=== PATIENT | female | born 1980 | race Caucasian/White ===

== ENCOUNTER 2016-10-11 12:41 | Inpatient (IN) | payer BC, OTHER ==
[~2016-10-11] VITALS: Ht 167.6 cm; Wt 61.0 kg
[2016-10-11 13:08] LABS: HEMATOCRIT 31.2 % (36.0-46.0); MCHC 33.3 G/DL (30.0-36.0); MCV 93.1 FL (83-99); MEAN PLAT.VOLUME 10.2 uM^3 (9.5-12.4); PLATELET COUNT 116 K/uL (156-360); RBC DIS.WIDTH-CV 14.4 % (11.8-14.6); RBC DIS.WIDTH-SD 47.2 % (39-53); RED BLOOD COUNT 3.35 M/uL (3.80-5.20); WHITE BLOOD COUNT 4.9 K/uL (4.1-10.2)
[2016-10-11 13:22] LABS: CHLORIDE 102 mEq/L (99-109); POTASSIUM 3.8 mEq/L (3.7-5.4); SODIUM 137 mEq/L (136-147)
[2016-10-11 13:24] LABS: GLUCOSE 117 mg/dL (70-99)
[2016-10-11 13:25] LABS: ANION GAP 9 MEQ/L (2-14)
[2016-10-11 13:28] LABS: GFR ESTIMATE (CALCULATED) > 59 mL/min/; UREA NITROGEN (BUN) 10 mg/dL (9-23)
[2016-10-11 13:30] LABS: TROP-I INTERPRETATION NEGATIVE; TROPONIN-I < 0.01 ng/mL (0.0-0.30)
[2016-10-11 13:33] LABS: QUANTITATIVE HCG < 4.0 MIU/ML
[2016-10-11 13:51] LABS: ADD MIUA? NO; BILIRUBIN NEGATIVE; BLOOD NEGATIVE; GLUCOSE (STRIP) NEGATIVE; KETONES NEGATIVE; LEUKOCYTES NEGATIVE; NITRITE NEGATIVE; PH, URINE 7.5 (5-8); PROTEIN (STRIP) NEGATIVE; SPECIFIC GRAVITY 1.003 (1.000-1.030); UROBILINOGEN 0.2 MG/DL (0.2-1.0)
[2016-10-11 13:53] LABS: COLOR LT YELLOW ((YELLOW))
[2016-10-11] MEDS ORDERED: NEURONTIN100 MG PO (17:25)
[2016-10-11] MEDS ORDERED: SPRINTEC1 EACH PO (17:26)
[2016-10-11 19:14] LABS: TROP-I INTERPRETATION NEGATIVE; TROPONIN-I < 0.01 ng/mL (0.0-0.30)
[2016-10-11 23:30] VITALS: BP 129/71
[2016-10-12] VITALS: BP 129/71
[2016-10-12 00:55] LABS: TROP-I INTERPRETATION NEGATIVE; TROPONIN-I < 0.01 ng/mL (0.0-0.30)
[2016-10-12 01:02] LABS: METH RESISTANT S AUREUS PCR NEGATIVE (NEGATIVE)
[2016-10-12 01:07] LABS: PROBE CHECK PASS; SPECIMEN PROCESSING CONTROL PASS
[2016-10-12 04:00] VITALS: BP 110/63
[2016-10-12 08:00] VITALS: BP 111/74
[2016-10-12 10:22] LABS: LYME DISEASE SEROLOGY SCREEN NEGATIVE (NEGATIVE)
[2016-10-12 10:48] LABS: AMPHETAMINES QUANT VALUE 0 NG/ML; BARBITUATES QUANT VALUE 0 NG/ML; BENZODIAZEPINES QUANT VALUE 0 NG/ML; BENZODIAZEPINES, URINE SCREEN Negative (200 ng/mL); MARIJUANA QUANT VALUE 0 NG/ML; OPIATES QUANTITATIVE VALUE 0 NG/ML; PHENCYCLIDINE QUANT VALUE 0 NG/ML
[2016-10-12 12:00] VITALS: BP 110/59
[2016-10-12 16:00] VITALS: BP 124/85
== END 2016-10-12 17:51 | disposition home or self-care (01) | DRG 312 ==
LOC: EME 12:41 → 4WEST 17:39 → EDOF 17:39 → 4WEST 23:26
PROVIDERS: Emergency Medicine; Hospitalist; Internal Medicine; Nurse Practitioner Family
DX: R55 Syncope and collapse (principal); F10.239 Alcohol dependence with withdrawal, unspecified; D69.6 Thrombocytopenia, unspecified; G40.509 Epileptic seizures related to external causes, not intractable, without status epilepticus; I44.1 Atrioventricular block, second degree; E07.9 Disorder of thyroid, unspecified; D64.9 Anemia, unspecified
CPT/HCPCS: 71010; 71020; 71275; 80048; 80306 90; 81003; 83735; 84443; 84484; 84702; 85027; 85379; 86618; 87641; 93005; 93306; 99281; 99285; J2060; J7030

== ENCOUNTER 2017-05-17 16:27 | Inpatient (IN) | payer BC ==
[~2017-05-17] VITALS: Ht 167.6 cm; Wt 65.3 kg
[2017-05-17 00:10] VITALS: BP 65/38
[~2017-05-17 16:27] MED LIST: NEURONTIN100 MG PO; SPRINTEC1 EACH PO
[2017-05-17 17:15] LABS: HEMATOCRIT 35.3 % (36.0-46.0); MCH 32.6 PG (29.0-34.0); MCHC 33.7 G/DL (30.0-36.0); MCV 96.7 FL (83-99); MEAN PLAT.VOLUME 9.5 uM^3 (9.5-12.4); PLATELET COUNT 229 K/uL (156-360); RBC DIS.WIDTH-CV 12.1 % (11.8-14.6); RBC DIS.WIDTH-SD 43.1 % (39-53); RED BLOOD COUNT 3.65 M/uL (3.80-5.20); WHITE BLOOD COUNT 8.2 K/uL (4.1-10.2)
[2017-05-17 17:23] LABS: CHLORIDE 105 mEq/L (99-109); POTASSIUM 3.9 mEq/L (3.7-5.4); SODIUM 138 mEq/L (136-147)
[2017-05-17 17:24] LABS: GLUCOSE 102 mg/dL (70-99)
[2017-05-17 17:26] LABS: ANION GAP 11 MEQ/L (2-14)
[2017-05-17 17:28] LABS: GFR ESTIMATE (CALCULATED) > 59 mL/min/
[2017-05-17 17:29] LABS: UREA NITROGEN (BUN) 16 mg/dL (9-23)
[2017-05-17 17:39] LABS: QUANTITATIVE HCG < 4.0 MIU/ML
[2017-05-17 18:12] LABS: SERUM ETHYL ALCOHOL < 10 mg/dL
[2017-05-17 18:40] LABS: TOTAL BILIRUBIN 0.5 mg/dL (0.0-1.0)
[2017-05-17 18:41] LABS: ALKALINE PHOSPHATASE 31 IU/L (3-129)
[2017-05-17 18:44] LABS: DIRECT BILIRUBIN 0.2 mg/dL (0.0-0.3)
[2017-05-17 18:45] LABS: LIPASE 22 U/L (1.0-51.0)
[2017-05-17 19:57] LABS: TROP-I INTERPRETATION NEGATIVE; TROPONIN-I < 0.01 ng/mL (0.0-0.30)
[2017-05-17] MEDS ORDERED: MELOXICAM7.5 MG PO (20:16)
[2017-05-17] MEDS ORDERED: PIMTREA 28 DAY1 EACH PO (20:17)
[2017-05-17] MEDS ORDERED: GLUCOSAMINE CH1 EAC7 PO (20:17)
[2017-05-17] MEDS ORDERED: COLLAGEN PLUS1 EACH PO (20:17)
[2017-05-17] MEDS ORDERED: FISH OIL 1,0001 EAC7 PO (20:18)
[2017-05-17] MEDS ORDERED: SUPER B-50 COM1 EACH PO (20:18)
[2017-05-17] MEDS ORDERED: MAGNESIUM400 M1 PO (20:18)
[2017-05-17] MEDS ORDERED: HAIR, SKIN & N1 EAC1 PO (20:18)
[2017-05-17] MEDS ORDERED: PROBIOTIC1 EAC1 PO (20:19)
[2017-05-17] MEDS ORDERED: CALTRATE 600 +1 EAC1 PO (20:19)
[2017-05-17 21:16] LABS: ADD MIUA? YES; BILIRUBIN NEGATIVE; BLOOD MODERATE; COLOR YELLOW ((YELLOW)); GLUCOSE (STRIP) NEGATIVE; KETONES NEGATIVE; LEUKOCYTES TRACE; NITRITE NEGATIVE; PROTEIN (STRIP) NEGATIVE; UROBILINOGEN 0.2 MG/DL (0.2-1.0)
[2017-05-17 21:24] LABS: AMPHETAMINE NEGATIVE (500 ng/mL); BARBITURATES NEGATIVE (200 ng/mL); BENZODIAZEPINES NEGATIVE (150 ng/mL); COCAINE NEGATIVE (150 ng/mL); INTERNAL CONTROLS VALID? YES; METHADONE NEGATIVE (200 ng/mL); METHAMPHETAMINE NEGATIVE (500 ng/mL); OPIATES (MORPHINE) NEGATIVE (100 ng/mL); OXYCODONE NEGATIVE (100 ng/mL); PHENCYCLIDINE NEGATIVE (25 ng/mL); PROPOXYPHENE NEGATIVE (300 ng/mL); THC CANNABINOIDS NEGATIVE (50 ng/mL); TRICYCLIC ANTIDEPRESSANTS NEGATIVE (300 ng/mL)
[2017-05-17 21:46] LABS: BACTERIA RARE /HPF; CASTS NONE SEEN /LPF; CRYSTALS PRESENT; EPITHELIAL CELLS 2+ /HPF; MUCUS TRACE /LPF; RED BLOOD CELLS 0-5 /HPF (0-5); WHITE BLOOD CELLS RARE /HPF (0-5)
[2017-05-17 21:47] LABS: AMORPHOUS URATES CRYSTALS 2+
[2017-05-18] VITALS (18 sets, daily range): BP systolic 68–112; BP diastolic 30–70
[2017-05-18 02:11] LABS: METH RESISTANT S AUREUS PCR NEGATIVE (NEGATIVE)
[2017-05-18 02:13] LABS: PROBE CHECK PASS; SPECIMEN PROCESSING CONTROL PASS
[2017-05-18 02:41] LABS: AMPHETAMINES QUANT VALUE 0 NG/ML; BARBITUATES QUANT VALUE 0 NG/ML; BENZODIAZEPINES QUANT VALUE 0 NG/ML; BENZODIAZEPINES, URINE SCREEN Negative (200 ng/mL); MARIJUANA QUANT VALUE 0 NG/ML; OPIATES QUANTITATIVE VALUE 0 NG/ML; PHENCYCLIDINE QUANT VALUE 0 NG/ML
[2017-05-18 05:53] LABS: HEMATOCRIT 32.7 % (36.0-46.0); MCHC 32.1 G/DL (30.0-36.0); MCV 99.7 FL (83-99); MEAN PLAT.VOLUME 9.8 uM^3 (9.5-12.4); PLATELET COUNT 189 K/uL (156-360); RBC DIS.WIDTH-CV 12.2 % (11.8-14.6); RBC DIS.WIDTH-SD 44.4 % (39-53); RED BLOOD COUNT 3.28 M/uL (3.80-5.20); WHITE BLOOD COUNT 6.3 K/uL (4.1-10.2)
[2017-05-18 06:13] LABS: ANION GAP 7 MEQ/L (2-14); CHLORIDE 112 MEQ/L (99-109); GFR ESTIMATE (CALCULATED) > 59 mL/min/; GLUCOSE 87 mg/dL (70-99); HDL CHOLESTEROL 58 MG/DL (Desirable>=50); LDL CHOLESTEROL 70 mg/dL (Desirable<100); NON-HDL CHOLESTEROL 81 mg/dL (Desirable<160); POTASSIUM 4.1 MEQ/L (3.7-5.4); SAMPLE HEMOLYSIS CHECK 0; SAMPLE ICTERIC CHECK 0; SAMPLE LIPEMIA CHECK 0; SODIUM 141 MEQ/L (136-147); TOTAL CHOLESTEROL 139 mg/dL (Desirable<200); TRIGLYCERIDES 54 MG/DL (Normal: <150); UREA NITROGEN (BUN) 14 mg/dL (9-23)
[2017-05-18 07:37] LABS: Estimated Average Glucose 105 mg/dL (70-123); HEMOGLOBIN A1c (GLYCOHEMOGLOB) 5.3 % HGB (Below 5.7)
== END 2017-05-18 15:08 | disposition home or self-care (01) | DRG 310 ==
LOC: EME 16:27 → EDOF 22:07 → ENRESERV 22:35 → 5WEST 23:47 → ENRESERV 05-18 00:30 → 4WEST 05-18 00:39
PROVIDERS: Hospitalist; Internal Medicine Critical Care Medicine; Physician Assistant
DX: I44.1 Atrioventricular block, second degree (principal); R00.1 Bradycardia, unspecified; I95.9 Hypotension, unspecified; E86.0 Dehydration; R41.82 Altered mental status, unspecified; D64.9 Anemia, unspecified; F10.21 Alcohol dependence, in remission; F17.200 Nicotine dependence, unspecified, uncomplicated; Z82.49 Family history of ischemic heart disease and other diseases of the circulatory system
CPT/HCPCS: 70450; 71020; 80048; 80061; 80076; 80306 90; 81003; 83036; 83690; 84484; 84702; 85027; 87641; 93005; 99281; 99285; G0378; G0480; J1650; J1885; J7030; J7040